=== PATIENT | male | born 1940 | race Caucasian/White ===

== ENCOUNTER 2018-09-12 06:04 | Day surgery (SDC) | payer OTHER, MEDICARE ==
--- NOTE | 2018-09-03 11:24 | HP ---
DATE OF ADMISSION: 09/12/2018 DATE OF DICTATION: 07/19/2018 DATE OF SURGERY: 09/12/2018 REASON FOR ADMISSION: Left inguinal hernia. BRIEF HISTORY: This is a 77-year-old gentleman who underwent an open right inguinal hernia repair in October of 2017. He now presents to the office with a bulge in the left groin region. The patient states he has had this bulge for the last several weeks now. It did cause him some discomfort with prolonged standing or walking. He has had no nausea, no vomiting, no change in bowel habits. Past medical history is significant for hypertension. No coronary disease or diabetes. PAST SURGICAL HISTORY: He has undergone a colon resection on the right side along with a portion of his ileum for Crohn's disease. He also had a cholecystectomy done (Beck). He had an open right inguinal hernia repair (Beck as well). ALLERGIES: None. MEDICATIONS: Apriso, 6-mercaptopurine, cholestyramine, losartan, hydrochlorothiazide, metoprolol, amlodipine, and fenofibrate. SOCIAL HISTORY: He does not smoke. He smokes a cigar on occasion and drinks socially. PHYSICAL EXAMINATION: The abdomen is soft, nontender, nondistended. He has a very well-healed right inguinal scar without evidence of recurrence. Right scrotum and testicle is within normal limits. On the left side, the patient is noted to have a moderate sized left inguinal hernia which is reducible in the supine position. Left scrotum and testicle is within normal limits. He has a lower midline incision that is healed nicely, no obvious incisional hernias. He has a small hernia at the level of the umbilicus. IMPRESSION/PLAN: Left inguinal hernia (this was previously identified on the H&P from October 2017). This hernia has gotten worse and now he wishes to have this repaired. At this point, will plan for an open repair of left inguinal hernia with mesh. The indications, alternatives, complications discussed, questions answered. Will plan to obtain written consent the day of surgery. JIMMY BECK M.D. [id number]
[2018-09-11 09:28] VITALS: BMI 19.1
[2018-09-12] MEDS ORDERED: CEFAZOLIN 1 GM/D5W 1 GM/50 ML BAG ONE (06:36)
[2018-09-12] MEDS ORDERED: SUCCINYLCHOLINE CHLORIDE 200 MG/10 ML VIAL ONE (07:29)
[2018-09-12] MEDS ORDERED: ROCURONIUM BROMIDE 50 MG/5 ML VIAL ONE (07:29)
[2018-09-12] MEDS ORDERED: PROPOFOL 20 ML ONE (07:29)
[2018-09-12] MEDS ORDERED: ceFAZolin SODIUM 1 GM VIAL ONE (07:30)
[2018-09-12] MEDS ORDERED: ONDANSETRON 4 MG/2 ML VIAL ONE (07:30)
[2018-09-12] MEDS ORDERED: DEXAMETHASONE SOD PHOSPHATE 4 MG/1 ML VIAL ONE ×2 (07:30→07:43)
[2018-09-12] MEDS ORDERED: LIDOCAINE HCL/PF 2% SDV 5ML VIAL ONE (07:30)
[2018-09-12] MEDS ORDERED: SODIUM CHLORIDE 0.9% P/F 10 ML VIAL IJ ONE (07:30)
[2018-09-12] MEDS ORDERED: DESFLURANE GAS 240 ML BOTTLE IH ONE (07:34)
[2018-09-12] MEDS ORDERED: DEXMEDETOMIDINE HCL 200 MCG/2 ML IVPB ONE (07:34)
[2018-09-12] MEDS ORDERED: MIDAZOLAM HCL 2 MG/2 ML SINGLE DOSE VIAL ONE ×2 (07:37)
[2018-09-12] MEDS ORDERED: ceFAZolin SODIUM 1 GM VIAL IVPB ONE (08:16)
[2018-09-12] MEDS ORDERED: ePHEDrine SULFATE 50 MG/1 ML AMPULE ONE (08:27)
[2018-09-12 10:16] VITALS: PULSE 60
--- NOTE | 2018-09-12 11:36 | OP ---
DATE OF OPERATION: 09/12/2018 PREOPERATIVE DIAGNOSIS: Left inguinal hernia. POSTOPERATIVE DIAGNOSIS: Left indirect inguinal hernia. PROCEDURE: Open repair of left inguinal hernia with mesh, 5-cm intermediate wound closure. SURGEON: Kolby Beck MD STRUCTURAL ANALYSIS ENGINEER: Lowell Guzman DO ANESTHESIA: Igor Cohen MD (general). ESTIMATED BLOOD LOSS: Minimal. SPECIMEN: Hernia sac and cord lipoma. INDICATIONS/PROCEDURE: This is a 77-year-old gentleman symptomatic for a left inguinal hernia. He has here today for an operative repair. Patient was identified and appropriately positioned on the operating room table. After placement of general anesthesia, the abdomen was prepped and draped in the usual sterile fashion with ChloraPrep. A 5-cm left inguinal incision was made deep in the subcutaneous tissue. Scarpas was divided sharply. The fascial of the external oblique opened in the direction of its fibers through the external ring. The ilioinguinal nerve identified, retracted medially. The cord isolated the pubic tubercle. The hernia sac identified within the cord on the anterior medial side. The sac off the cord structures with blunt dissection down to the level of the internal ring. It was subsequently then suture ligated with a 2-0 Prolene suture. The lipoma associated with the cord was excised sharply. The inguinal floor opened, and a Marlex mesh plug placed into the inguinal floor. The plug itself was anchored with interrupted inverted 0 Prolene sutures. The inguinal floor reconstructed in two layers with 2-0 Prolene suture. Due to the attenuation of the inguinal floor, another patch was then placed over the floor and anchored with interrupted 2-0 Prolene sutures. The patch itself was slit at the level of the internal ring to allow passage of the cord. The inguinal nerve returned to its anatomic position along with the cord structures. The fascia at the external oblique was reapproximated with a running 3-0 Vicryl suture. Scarpas was reapproximated with interrupted inverted 3-0 Vicryl suture , and the skin closed with 4-0 subcuticular Biosyn followed by Dermabond. Length of the incision was approximately 5 cm. At the conclusion of this case, sponge and instrument counts were correct. ATTESTATION: Brief operative note handwritten on the preprinted form. [facility] queried prior to giving any narcotics. KOLBY BECK M.D. [id number] cc: Dr. Emelia WILSON
[2018-09-12] MEDS ORDERED: ONDANSETRON 4 MG/2 ML VIAL IVPUSH PRN (11:43)
[2018-09-12] MEDS ORDERED: oxyCODONE HCL 5 MG TABLET PO PRN ×2 (11:43)
[2018-09-12] MEDS ORDERED: LACTATED RINGERS SOLUTION 1,000 ML IV SCH (11:45)
[2018-09-12 12:41] VITALS: BP 110/60; TEMP 98
--- NOTE | 2018-09-13 12:39 | PATH ---
Surgical Pathology Report Patient Name: ESVIN AYALA Med. Rec. #: [id number] /Age/Gender: 1940 (Age: 77) / M Account: [id number] Location: [facility] SURGICAL Taken: 09/12/2018 Received: 09/12/2018 Reported: 09/13/2018 Physicians: Kolby Reid Specimen(s) Received HERNIA SAC AND CORD LIPOMA Clinical History Left inguinal hernia Final Diagnosis HERNIA SAC AND CORD LIPOMA, LEFT, OPEN INGUINAL HERNIA REPAIR: MESOTHELIAL LINED FIBROMEMBRANOUS TISSUE CONSISTENT WITH HERNIA SAC. MATURE FIBROADIPOSE TISSUE CONSISTENT WITH CORD LIPOMA. Electronically Signed Karina Su M.D. Gross Description Received in formalin labeled "hernia sac and cord lipoma," is a 5.0 x 3.5 x 1.3 cm are kasper portions of fibromembranous tissue admixed with yellow, lobulated adipose tissue. Barrel Tester sections are submitted in one cassette. /09/12/2018 [facility]09/12/2018
== END 2018-09-12 12:00 | disposition home or self-care (01) ==
LOC: JASU-SURG 06:04
PROVIDERS: ATTEND Surgery
PROC: 0YU60JZ Supplement Left Inguinal Region with Synthetic Substitute, Open Approach (ICD-10-PCS; principal; 2018-09-12 08:00)
DX: K40.90 Unilateral inguinal hernia, without obstruction or gangrene, not specified as recurrent (principal)
CPT/HCPCS: 88302-TC; 94760